=== PATIENT | female | born 1970 | race Hispanic/Latino ===

== ENCOUNTER 2019-04-01 17:11 | Emergency (ER) | payer SELFPAY | END 2019-04-01 19:25 | disposition home or self-care (01) | LOC: EDH 17:11 | DX: R22.0 Localized swelling, mass and lump, head (principal); Z87.891 Personal history of nicotine dependence; Z98.51 Tubal ligation status | CPT/HCPCS: 99281 ==

== ENCOUNTER 2023-05-22 21:30 | Inpatient (IN) | payer OTHER ==
[~2023-05-22] VITALS: Ht 154.9 cm; Wt 88.3 kg
[2023-05-22 22:01] LABS: BASOPHILS # (AUTO) 0.03 K/uL (0.00-0.20); BASOPHILS % (AUTO) 0.3 % (0.0-5.0); EOSINOPHILS # (AUTO) 0.03 K/uL (0.00-0.70); EOSINOPHILS % (AUTO) 0.3 % (0.0-8.0); HEMATOCRIT 32.6 % (36-48); IMMATURE GRANULOCYTE ABSOLUTE 0.06 K/uL (0-1); LYMPHOCYTES # (AUTO) 1.8 K/uL (1.0-4.8); LYMPHOCYTES % (AUTO) 19.1 % (21.0-51.0); MEAN CORPUSCULAR HEMOGLOBIN 24.5 pg (27.0-33.0); MEAN CORPUSCULAR HGB CONC 33.4 g/dL (32.0-36.0); MEAN CORPUSCULAR VOLUME 73.4 fL (79-99); MONOCYTES # (AUTO) 0.5 K/uL (0.1-1.0); MONOCYTES % (AUTO) 4.7 % (3.0-13.0); NEUTROPHILS # (AUTO) 7.1 K/uL (1.8-7.7); PLATELET COUNT (AUTO) 346 K/uL (130-400); RED BLOOD CELL COUNT(AUTO) 4.44 MIL/uL (4.00-5.50); RED CELL DISTRIBUTION WIDTH 14.7 % (11.0-15.5); WHITE BLOOD COUNT (AUTO) 9.5 K/uL (4.8-10.8)
[2023-05-22 22:19] LABS: INR 0.98 (0.85-1.15); PROTHROMBIN TIME 11.4 SEC (9.6-11.6)
[2023-05-22 22:20] LABS: PARTIAL THROMBOPLASTIN TIME 29.4 SEC (26.3-35.5)
[2023-05-22 22:43] LABS: ALANINE AMINOTRANSFERASE 20 U/L (12-78); ALBUMIN 2.8 g/dL (3.5-5.0); ASPARTATE AMINOTRANSFERASE 25 U/L (10-37); BILIRUBIN,TOTAL 0.6 mg/dL (0.2-1.0); CARBON DIOXIDE 33 mmol/L (21-32); CHLORIDE 95 mmol/L (101-111); CREATININE 0.9 mg/dL (0.5-1.5); GLOMERULAR FILTR. RATE CALC 76 mL/min (>90); GLUCOSE,RANDOM 93 mg/dL (70-105); SODIUM SERUM 139 mmol/L (136-145); TOTAL PROTEIN, SERUM 7.6 g/dL (6.0-8.3); UREA NITROGEN, BLOOD 10 mg/dL (7-18)
[2023-05-22 22:49] LABS: CREATINE KINASE, TOTAL 1454 U/L (21-232); POTASSIUM 2.7 mmol/L (3.5-5.1)
[2023-05-22 22:54] LABS: APPEARANCE,URINE CLOUDY (CLEAR); BILIRUBIN,URINE NEGATIVE (NEGATIVE); COLOR,URINE YELLOW (YELLOW); GLUCOSE, URINE (UA) NEGATIVE (NEGATIVE); KETONES,URINE 40 mg/dL (NEGATIVE); LEUKOCYTE ESTERASE ,URINE 250 Leu/uL (NEGATIVE); NITRATE,URINE 2+ (NEGATIVE); OCCULT BLOOD,URINE MODERATE (NEGATIVE); PH,URINE 5.5 (5.0-8.0); PROTEIN,URINE 50 mg/dL (NEGATIVE); UROBILINOGEN,URINE 0.2 mg/dL (0.2-1.0)
[2023-05-22 22:58] LABS: ADD UA MICROSCOPIC YES
[2023-05-22 23:05] LABS: BACTERIA,URINE MOD /HPF (None Seen); MUCUS,URINE MOD LPF (None Seen); SQUAMOUS EPITHELIAL CELL,UR MANY /HPF (0-2); WBC,URINE 51-100 /HPF (0-1)
[2023-05-22 23:14] LABS: INFLUENZA TYPE A Negative For Type A (NEGATIVE); INFLUENZA TYPE B Negative For Type B (NEGATIVE)
[2023-05-22 23:21] LABS: SARS-CoV-2, RNA, NAAT NEGATIVE SARS CoV-2 (NEGATIVE)
[2023-05-22] MEDS ORDERED: KCL 20 MEQ ERTAB PO ONE (23:30)
[2023-05-22] MEDS ORDERED: 0.9%NACL 1000ML 3,000 ML IV ONE (23:30)
[2023-05-23] MEDS: CEFTRIAXONE 1G VIAL IV SCH ×2 (00:29→21:02)
[2023-05-23] MEDS ORDERED: ACETAMINOPHEN 325 MG TAB PO PRN ×2 (00:30)
[2023-05-23] MEDS ORDERED: CEFTRIAXONE 1G VIAL IVPB ONE (00:30)
[2023-05-23] MEDS ORDERED: ONDANSETRON 4MG INJ IV PRN (00:30)
[2023-05-23] MEDS ORDERED: POTASSIUM CHLORIDE 10% ELIXIR 20 MEQ/15 ML UDCUP PO PRN (00:30)
[2023-05-23] MEDS: 0.9%NACL 1000ML 1,000 ML IV SCH ×3 (00:37→21:02)
[2023-05-23] MEDS: CALCIUM GLUC 1GM/10ML VIAL IVPB SCH (00:43)
[2023-05-23 01:20] VITALS: BP 163/80; PULSE 79; RESP 20
[2023-05-23 04:00] VITALS: BP 165/92; PULSE 90; RESP 20
[2023-05-23 06:59] LABS: BASOPHILS # (AUTO) 0.03 K/uL (0.00-0.20); BASOPHILS % (AUTO) 0.3 % (0.0-5.0); EOSINOPHILS # (AUTO) 0.05 K/uL (0.00-0.70); EOSINOPHILS % (AUTO) 0.5 % (0.0-8.0); HEMATOCRIT 29.4 % (36-48); IMMATURE GRANULOCYTE ABSOLUTE 0.06 K/uL (0-1); LYMPHOCYTES # (AUTO) 1.4 K/uL (1.0-4.8); LYMPHOCYTES % (AUTO) 13.5 % (21.0-51.0); MEAN CORPUSCULAR HEMOGLOBIN 23.9 pg (27.0-33.0); MEAN CORPUSCULAR HGB CONC 33.3 g/dL (32.0-36.0); MEAN CORPUSCULAR VOLUME 71.7 fL (79-99); MONOCYTES # (AUTO) 0.6 K/uL (0.1-1.0); MONOCYTES % (AUTO) 5.8 % (3.0-13.0); NEUTROPHILS # (AUTO) 8.1 K/uL (1.8-7.7); NEUTROPHILS % (AUTO) 79.3 % (40.0-77.0); PLATELET COUNT (AUTO) 342 K/uL (130-400); RED CELL DISTRIBUTION WIDTH 14.7 % (11.0-15.5); WHITE BLOOD COUNT (AUTO) 10.2 K/uL (4.8-10.8)
[2023-05-23 07:26] LABS: HEMOGLOBIN A1C 6.4 % (4.0-6.0)
[2023-05-23 07:36] LABS: ALANINE AMINOTRANSFERASE 13 U/L (12-78); ALBUMIN 2.4 g/dL (3.5-5.0); ASPARTATE AMINOTRANSFERASE 24 U/L (10-37); BILIRUBIN,TOTAL 0.3 mg/dL (0.2-1.0); CARBON DIOXIDE 30 mmol/L (21-32); CHLORIDE 102 mmol/L (101-111); CHOLESTEROL 184 mg/dL (<200); CREATININE 0.8 mg/dL (0.5-1.5); GLOMERULAR FILTR. RATE CALC 88 mL/min (>90); GLUCOSE,RANDOM 121 mg/dL (70-105); HDL CHOLESTEROL 50 mg/dL (35-85); LDL DIRECT 114 mg/dL (0-99); SODIUM SERUM 140 mmol/L (136-145); THYROID STIMULATING HORMONE 1.12 uIU/mL (0.36-3.74); TOTAL PROTEIN, SERUM 6.4 g/dL (6.0-8.3); TRIGLYCERIDES 89 mg/dL (30-200); UREA NITROGEN, BLOOD 6 mg/dL (7-18)
[2023-05-23 07:52] LABS: POTASSIUM 2.5 mmol/L (3.5-5.1)
[2023-05-23 07:53] LABS: CREATINE KINASE, TOTAL 1373 U/L (21-232)
[2023-05-23 08:00] VITALS: BP 153/56; PULSE 74; RESP 16
[2023-05-23] MEDS ORDERED: MAGNESIUM 2GM PREMIX 50ML 50 ML IV SCH (08:30)
[2023-05-23] MEDS ORDERED: KCL 20 MEQ ERTAB PO ONE (08:30)
[2023-05-23] MEDS ORDERED: AMLODIPINE 5 MG TAB PO SCH (09:00)
[2023-05-23] MEDS: FAMOTIDINE 20MG TAB PO SCH ×2 (09:21→20:58)
[2023-05-23] MEDS: MAGNESIUM 2GM PREMIX 50ML 50 ML IV PRN (09:23)
[2023-05-23 10:48] LABS: AMPHET/METH SCREEN,URINE NEGATIVE (NEGATIVE); BARBITURATE SCREEN, URINE NEGATIVE (NEGATIVE); BENZODIAZEPINES SCREEN,URINE NEGATIVE (NEGATIVE); CANNABINOID SCREEN,URINE NEGATIVE (NEGATIVE); COCAINE SCREEN,URINE NEGATIVE (NEGATIVE); OPIATE SCREEN,URINE NEGATIVE (NEGATIVE); PHENCYCLIDINE SCREEN,URINE NEGATIVE (NEGATIVE)
[2023-05-23] MEDS: KCL 20 MEQ ERTAB PO PRN ×4 (11:33→20:59)
[2023-05-23] MEDS: POTASSIUM CHLORIDE 20MEQ/100ML 100 ML IV PRN ×2 (11:33→17:46)
[2023-05-23 12:00] VITALS: BP 153/88; PULSE 79; RESP 16
[2023-05-23 16:00] VITALS: BP 144/96; PULSE 85; RESP 16
[2023-05-23 20:02] VITALS: BP 135/75; PULSE 74; RESP 16
[2023-05-24] VITALS: BP 159/82; PULSE 72; RESP 16
[2023-05-24] MEDS: KCL 20 MEQ ERTAB PO PRN ×4 (00:26→17:38)
[2023-05-24 04:00] VITALS: BP 155/83; PULSE 88; RESP 16
[2023-05-24 04:31] LABS: CARBON DIOXIDE 28 mmol/L (21-32); CHLORIDE 97 mmol/L (101-111); CREATININE 0.7 mg/dL (0.5-1.5); GLOMERULAR FILTR. RATE CALC 103 mL/min (>90); GLUCOSE,RANDOM 96 mg/dL (70-105); POTASSIUM 3.1 mmol/L (3.5-5.1); SODIUM SERUM 137 mmol/L (136-145); UREA NITROGEN, BLOOD 6 mg/dL (7-18)
[2023-05-24] MEDS: CALCIUM GLUC 1GM/10ML VIAL IVPB SCH ×2 (05:59→09:47)
[2023-05-24] MEDS: MAGNESIUM 2GM PREMIX 50ML 50 ML IV PRN (05:59)
[2023-05-24 08:00] VITALS: BP 149/91; PULSE 74; RESP 16
[2023-05-24] MEDS: AMLODIPINE 5 MG TAB PO SCH (09:47)
[2023-05-24] MEDS: FAMOTIDINE 20MG TAB PO SCH ×2 (09:47→20:46)
[2023-05-24 11:46] VITALS: BP 140/77; PULSE 69; RESP 14
[2023-05-24] MEDS: 0.9%NACL 1000ML 1,000 ML IV SCH ×2 (12:01→16:30)
[2023-05-24 15:04] VITALS: BP 152/82; PULSE 81; RESP 14
[2023-05-24 19:58] VITALS: BP 145/82; PULSE 85; RESP 17
[2023-05-24] MEDS: CALCIUM CARB 500MG CHEW TAB PO SCH (20:46)
[2023-05-25] VITALS: BP 130/72; PULSE 85; RESP 17
[2023-05-25] MEDS: CEFTRIAXONE 1G VIAL IV SCH ×2 (00:48→23:33)
[2023-05-25] MEDS: 0.9%NACL 1000ML 1,000 ML IV SCH ×3 (02:30→22:30)
[2023-05-25 04:00] VITALS: BP 135/75; PULSE 81; RESP 18
[2023-05-25 04:44] LABS: CREATININE 0.7 mg/dL (0.5-1.5); POTASSIUM 3.3 mmol/L (3.5-5.1)
[2023-05-25 05:06] LABS: ALBUMIN 2.3 g/dL (3.5-5.0); BILIRUBIN,TOTAL 0.3 mg/dL (0.2-1.0); MAGNESIUM 1.3 mg/dL (1.80-2.40); TOTAL PROTEIN, SERUM 6.9 g/dL (6.0-8.3)
[2023-05-25] MEDS: KCL 20 MEQ ERTAB PO PRN ×2 (06:31→11:53)
[2023-05-25] MEDS: MAGNESIUM 2GM PREMIX 50ML 50 ML IV PRN (06:49)
[2023-05-25] MEDS ORDERED: PHARMACY COMMUNICATION MISC SCH (07:00)
[2023-05-25 08:00] VITALS: BP 142/83; PULSE 83; RESP 17
[2023-05-25] MEDS: CALCIUM CARB 500MG CHEW TAB PO SCH ×2 (08:27→20:22)
[2023-05-25] MEDS: FAMOTIDINE 20MG TAB PO SCH ×2 (08:27→20:21)
[2023-05-25] MEDS: AMLODIPINE 5 MG TAB PO SCH (08:28)
[2023-05-25] MEDS ORDERED: COMPOUND IV MISC 1 EACH IVSOLN MISC PRN (09:30)
[2023-05-25] MEDS: CALCIUM GLUC 1GM 2 GM in 0.9%NACL 100ML 100 ML IV SCH (10:53)
[2023-05-25 11:54] VITALS: BP 116/48; PULSE 77; RESP 16
[2023-05-25 16:00] VITALS: BP 146/61; PULSE 96; RESP 18
[2023-05-25 20:00] VITALS: BP 131/70; PULSE 80; RESP 20
[2023-05-26] VITALS (8 sets, daily range): BP systolic 116–157; BP diastolic 64–90; PULSE 78–96; RESP 16–19; O2SAT 96–98
[2023-05-26 03:56] LABS: BASOPHILS # (AUTO) 0.02 K/uL (0.00-0.20); BASOPHILS % (AUTO) 0.2 % (0.0-5.0); EOSINOPHILS # (AUTO) 0.12 K/uL (0.00-0.70); EOSINOPHILS % (AUTO) 1.5 % (0.0-8.0); HEMATOCRIT 29.4 % (36-48); IMMATURE GRANULOCYTE ABSOLUTE 0.03 K/uL (0-1); LYMPHOCYTES # (AUTO) 2.1 K/uL (1.0-4.8); LYMPHOCYTES % (AUTO) 25.3 % (21.0-51.0); MEAN CORPUSCULAR HEMOGLOBIN 24.2 pg (27.0-33.0); MEAN CORPUSCULAR VOLUME 73.3 fL (79-99); MONOCYTES # (AUTO) 0.6 K/uL (0.1-1.0); MONOCYTES % (AUTO) 7.4 % (3.0-13.0); NEUTROPHILS # (AUTO) 5.3 K/uL (1.8-7.7); NEUTROPHILS % (AUTO) 65.2 % (40.0-77.0); PLATELET COUNT (AUTO) 390 K/uL (130-400); RED BLOOD CELL COUNT(AUTO) 4.01 MIL/uL (4.00-5.50); RED CELL DISTRIBUTION WIDTH 15.1 % (11.0-15.5); WHITE BLOOD COUNT (AUTO) 8.2 K/uL (4.8-10.8)
[2023-05-26 04:12] LABS: CREATININE 0.8 mg/dL (0.5-1.5); POTASSIUM 3.7 mmol/L (3.5-5.1)
[2023-05-26] MEDS: CALCIUM GLUC 1GM 2 GM in 0.9%NACL 100ML 100 ML IV SCH (04:39)
[2023-05-26] MEDS: FAMOTIDINE 20MG TAB PO SCH ×2 (08:51→20:40)
[2023-05-26] MEDS: 0.9%NACL 1000ML 1,000 ML IV SCH ×2 (08:53→17:48)
[2023-05-26] MEDS: AMLODIPINE 5 MG TAB PO SCH (08:53)
[2023-05-26] MEDS: CALCIUM CARB 500MG CHEW TAB PO SCH ×2 (09:00→20:40)
[2023-05-26] MEDS: MAGNESIUM 2GM PREMIX 50ML 50 ML IV PRN (11:32)
[2023-05-26] MEDS ORDERED: ONDANSETRON 4MG TABLET PO PRN (15:30)
[2023-05-26] MEDS: CEFTRIAXONE 1G VIAL IV SCH (23:49)
[2023-05-27] MEDS: 0.9%NACL 1000ML 1,000 ML IV SCH (03:57)
[2023-05-27 04:00] VITALS: BP 124/79; PULSE 89; RESP 19
[2023-05-27 04:16] LABS: BASOPHILS # (AUTO) 0.03 K/uL (0.00-0.20); BASOPHILS % (AUTO) 0.4 % (0.0-5.0); EOSINOPHILS # (AUTO) 0.12 K/uL (0.00-0.70); EOSINOPHILS % (AUTO) 1.5 % (0.0-8.0); IMMATURE GRANULOCYTE ABSOLUTE 0.04 K/uL (0-1); LYMPHOCYTES # (AUTO) 2.1 K/uL (1.0-4.8); LYMPHOCYTES % (AUTO) 26.3 % (21.0-51.0); MEAN CORPUSCULAR HEMOGLOBIN 23.8 pg (27.0-33.0); MEAN CORPUSCULAR HGB CONC 32.6 g/dL (32.0-36.0); MEAN CORPUSCULAR VOLUME 73.1 fL (79-99); MONOCYTES # (AUTO) 0.4 K/uL (0.1-1.0); MONOCYTES % (AUTO) 5.3 % (3.0-13.0); NEUTROPHILS # (AUTO) 5.3 K/uL (1.8-7.7); PLATELET COUNT (AUTO) 419 K/uL (130-400); RED BLOOD CELL COUNT(AUTO) 4.24 MIL/uL (4.00-5.50); RED CELL DISTRIBUTION WIDTH 14.8 % (11.0-15.5); WHITE BLOOD COUNT (AUTO) 8.1 K/uL (4.8-10.8)
[2023-05-27 04:40] LABS: CREATININE 0.8 mg/dL (0.5-1.5); POTASSIUM 3.5 mmol/L (3.5-5.1)
[2023-05-27] MEDS: CALCIUM GLUC 1GM 2 GM in 0.9%NACL 100ML 100 ML IV SCH ×2 (05:00→05:01)
[2023-05-27] MEDS: MAGNESIUM 2GM PREMIX 50ML 50 ML IV PRN (07:45)
[2023-05-27] MEDS: FAMOTIDINE 20MG TAB PO SCH (07:46)
[2023-05-27] MEDS: CALCIUM CARB 500MG CHEW TAB PO SCH (07:46)
[2023-05-27] MEDS: AMLODIPINE 5 MG TAB PO SCH (07:46)
[2023-05-27] MEDS: KCL 20 MEQ ERTAB PO PRN ×2 (07:47→11:51)
[2023-05-27 08:00] VITALS: BP 118/65; PULSE 78; RESP 16; O2SAT 97
[2023-05-27] MEDS ORDERED: MAGNESIUM OXIDE 400 MG TABLET PO ONE (10:30)
[2023-05-27 12:00] VITALS: BP 104/61; PULSE 85; RESP 16
[2023-05-27] MEDS ORDERED: CALC500T13 PO (12:14)
[2023-05-27] MEDS ORDERED: AMLO5TAB4 PO (12:14)
[2023-05-27] MEDS ORDERED: LEVO-70 PO (12:16)
[2023-05-27 14:27] LABS: ALBUMIN 2.4 g/dL (3.5-5.0); BILIRUBIN,TOTAL 0.2 mg/dL (0.2-1.0); CREATININE 0.7 mg/dL (0.5-1.5); POTASSIUM 4.2 mmol/L (3.5-5.1)
== END 2023-05-27 16:20 | disposition home or self-care (01) | DRG 558 ==
LOC: EDH 21:30 → EDHIP 21:31 → UNDOADMIN 05-23 00:16 → EDHIP 05-23 00:16 → 4BH 05-23 01:20
PROVIDERS: ADMIT Hospitalist; ATTEND Hospitalist
DX: M62.82 Rhabdomyolysis (principal); E44.0 Moderate protein-calorie malnutrition; N39.0 Urinary tract infection, site not specified; Z20.822 Contact with and (suspected) exposure to COVID-19; E86.0 Dehydration; D64.9 Anemia, unspecified; Z68.36 Body mass index [BMI] 36.0-36.9, adult; B96.20 Unspecified Escherichia coli [E. coli] as the cause of diseases classified elsewhere; F17.210 Nicotine dependence, cigarettes, uncomplicated
CPT/HCPCS: 36415; 70450; 71045; 80048; 80053; 80061; 80305; 81001; 82330; 82550; 83036; 83735; 84132; 84145; 84443; 84484; 85025; 85610; 85730; 87077; 87088; 87186; 87635; 87804; 93005; C9803; G0378; J0610; J0696; J3475; J3480; J7030